=== PATIENT | female | born 1995 | race Caucasian/White ===

== ENCOUNTER 2017-01-24 11:31 | Inpatient (IN) | payer BC ==
--- NOTE | ~2017-01-24 | CO ---
Unit #: [id number] #: [id number] Patient: THERESE RAGSDALE [id number] [address] [place], [place] [address] [id number] I MR#: [id number] NAME: THERESE RAGSDALE ROOM: 47 Age: 21 Sex: F Admission Date: 01/24/2017 : 1995 Attending Physician: Crystal Hickman M.D. CONSULTATION REPORT REASON FOR CONSULTATION Abdominal pain, diarrhea. HISTORY OF PRESENTING ILLNESS The patient states she was in her usual state of health until evening, where she began to have severe abdominal pain with associated nonbloody diarrhea. She subsequently went to urgent care, where they diagnosed her with UTI, sent her home with antibiotics. The pain persisted and she ended up here at the ER on Wednesday, where CT of abdomen and pelvis was completed, showing inflammation of bowel loops. She has been started on antibiotics. Pain is being controlled with pain medications, and the patient has yet to have a bowel movement this morning. ALLERGIES To trazodone. HOME MEDICATIONS Pyridium, ibuprofen, and Bactrim DS. SOCIAL HISTORY The patient denies tobacco, alcohol, or illicit drugs. PAST MEDICAL HISTORY Previous foot surgery. Otherwise, nothing noted. REVIEW OF SYSTEMS A complete 10-point review of systems was completed and negative except as mentioned in the HPI. PHYSICAL EXAMINATION GENERAL: The patient is a very pleasant, 21-year-old female, currently in no acute distress. VITAL SIGNS: Temperature is 98, pulse is 88, respirations 18, blood pressure is 115/62. HEENT: PERRLA. NECK: Supple. CARDIAC: S1, S2. LUNGS: Clear to auscultation. ABDOMEN: Soft, rounded. Positive tenderness, right side greater than left. NEUROLOGIC: The patient is alert, awake, and oriented x3. DIAGNOSTIC STUDIES IMAGING STUDIES: Again, a CT of abdomen and pelvis was completed, which Unit #: [id number] #: [id number] Patient: THERESE RAGSDALE showed significant wall thickening of the bowel loops. LABORATORY RESULTS: Chemistry is negative. White count is 11.3, which is down from 16.6 yesterday; hemoglobin is 12.3; hematocrit is 38.5, and platelets are 280. ASSESSMENT AND PLAN 1. Abdominal pain with diarrhea and an abnormal CT. We will await stool studies due to short-term course of symptoms. We will continue supportive care for now. Continue antibiotics, IV fluids, pain management. We would consider colonoscopy and small bowel follow-through in the future if no improvement in the symptoms and pending stool studies. 2. Urinary tract infection. Per primary team. Thank you for this interesting consult. We will continue to follow along. Dictated by... Sd KerrPSulemaRSulemaN. for George Elaine/angela TD: 01/25/2017 22:04 JOB #: [id number] CONSULTATION REPORT Page 1 of 1 X X CONSULTATION REPORT
--- NOTE | ~2017-01-24 | DS ---
Unit #: [id number] #: [id number] Patient: THERESE RAGSDALE [id number] [address] [address] [id number] I MR#: [id number] NAME: THERESE RAGSDALE ROOM: 47 Age: 21 Sex: F Admission Date: 01/24/2017 : 1995 Discharge Date: Attending Physician: Crystal Hickman M.D. Primary Care Physician: No Primary Care Physician DISCHARGE SUMMARY DISCHARGE DIAGNOSES 1. Acute ileitis. 2. Campylobacter positive. 3. Urinary tract infection. 4. Mild hyponatremia. CONSULTATIONS 1. [facility]. 2. Dr. Fields. PROCEDURE None. DIAGNOSTIC STUDIES LABORATORY: Campylobacter antigen present. Clostridium difficile negative. Sodium 133, potassium 3.6, creatinine 0.7. WBC 9.5, hemoglobin 12.2, platelets 338,000. Urine cultures negative. Blood cultures negative. Lactic acid 0.7. IMAGING: CAT scan of the abdomen and pelvis shows short segment thickening mid ileum. Findings nonspecific suggestive of inflammatory bowel disease. ALLERGIES Trazodone. DISCHARGE MEDICATIONS 1. Lortab 5 mg q.4 p.r.n. pain. 2. Ciprofloxacin 500 p.o. b.i.d. for seven days. 3. Flagyl 500 p.o. three times daily for seven days. HOSPITALIZATION COURSE A 21 year old admitted because of diarrhea and abdominal pain. Acute ileitis: The patient was seen by surgeon and Dr. Fields. The patient was started on IV Zosyn and Flagyl. Currently, pain better. Patient afebrile. WBC normal. Surgeon recommended colonoscopy but patient wants it as an outpatient. Surgeon and Dr. Fields okay for the patient to be discharged and have a colonoscopy as an outpatient to rule out any Crohn disease. The patient will be discharged on ciprofloxacin and Flagyl for seven days. Urinary tract infection: Cultures negative. Unit #: [id number] #: [id number] Patient: THERESE RAGSDALE DISPOSITION Patient will be discharged home. FOLLOWUP 1. Follow with family physician in one week time. 2. Follow with Dr. Fields in one to two weeks' time. 3. Follow with [facility] in one week time for outpatient colonoscopy. Dictated by... CrystalGeorge Miner TD: 01/27/2017 16:12 JOB #: [id number] DISCHARGE SUMMARY Page 1 of 1 X Crystal Hickman MD X DISCHARGE SUMMARY
--- NOTE | ~2017-01-24 | CO ---
Unit #: [id number] #: [id number] Patient: THERESE RAGSDALE [id number] [address] [address] [id number] I MR#: [id number] NAME: THERESE RAGSDALE ROOM: 476 Age: 21 Sex: F Admission Date: 01/24/2017 : 1995 Attending Physician: Crystal Hickman M.D. Consultation Date: 01/25/2017 CONSULTATION REPORT REASON FOR CONSULTATION Abdominal pain. HISTORY OF PRESENT ILLNESS Thank you very much for asking us to see Ms. Ragsdale. She is a 21-year-old white female, who approximately 3 to 4 days ago developed abdominal pain. She has had nausea, vomiting as well as diarrhea. She denies any GI bleeding. She states she may have some blood in her urine. She has had some frequency and urgency. She has had no pulmonary symptoms. She was evaluated in the emergency room and on CT scan was found to have inflammatory changes. There were several loops of small bowel in the lower abdomen. Her appendix appeared normal. She had no free air. She has not been on any antibiotics recently. She has a negative family history of inflammatory bowel disease. She presents at this time for further evaluation and treatment. ALLERGIES Trazodone. MEDICATIONS Please see home med rec sheet. PAST SURGICAL HISTORY No abdominal surgery. She had some foot surgery in the past. PAST MEDICAL HISTORY Unremarkable. SOCIAL HISTORY No tobacco or alcohol use. REVIEW OF SYSTEMS Negative except for above. IMMUNIZATION STATUS Unknown. FAMILY HISTORY Noncontributory. PHYSICAL EXAMINATION GENERAL: Well-developed, well-nourished white female, in no apparent distress. Unit #: [id number] #: [id number] Patient: THERESE RAGSDALE VITAL SIGNS: Afebrile with temperature 98, pulse 88, respirations 18, blood pressure 115/62. HEENT: Sclerae not icteric. Extraocular movements appear intact. NECK: Supple. No thyromegaly or adenopathy. BACK: No CVA or spinous tenderness. ABDOMEN: Soft, nondistended. She has mild diffuse tenderness mostly in the lower abdomen. No rebound or peritoneal signs, but there was some [id number] guarding. EXTREMITIES: No calf tenderness. DIAGNOSTIC STUDIES LABORATORY RESULTS: Reveal the patient to have a normal CMP, amylase, and lipase. Her white count was 16.6 on admission and is now 11.3. Her urinalysis was 2+ leukocyte esterase, positive nitrites with 10 to 25 white cells per high-powered field. The culture result is pending. IMPRESSION A 21-year-old white female with dysuria, possible hematuria and positive urinalysis for urinary tract infection. We have recommended IV fluids and IV antibiotics. We will have Dr. Fields see the patient for possible inflammatory bowel disease. We will follow the patient with you. Thank you so much for this consultation. We appreciate it. Dictated by... George Cabrera/angela TD: 01/25/2017 23:41 JOB #: [id number] CC: [facility] CONSULTATION REPORT Page 1 of 1 X Dash Huynh MD X CONSULTATION REPORT
--- NOTE | ~2017-01-24 | HP ---
Unit #: [id number] #: [id number] Patient: THERESE RAGSDALE [id number] [address] [address] [id number] I MR#: [id number] NAME: THERESE RAGSDALE ROOM: 476 Age: 21 Sex: F Admission Date: 01/24/2017 : 1995 Attending Physician: Crystal Hickman M.D. Primary Care Physician: No Primary Care Physician HISTORY AND PHYSICAL REASON FOR ADMISSION Right lower quadrant pain/ileitis. HISTORY OF PRESENT ILLNESS The patient is a very pleasant 22-year-old female, relatively unremarkable past medical history, who presents with right lower quadrant pain. Initial concern was secondary to acute appendicitis. She was accompanied by her parents. Through the emergency room course the patient underwent routine laboratory studies along with CT of the abdomen and pelvis. On her CT of the abdomen and pelvis findings were more consistent with ileitis. White count was also elevated to 16.6, sodium 133 and initial urinalysis was positive. She is being admitted for the same. PAST MEDICAL HISTORY None. PAST SURGICAL HISTORY Foot surgery, remote. SOCIAL HISTORY Negative alcohol. Negative tobacco. Negative illicit drug use. FAMILY HISTORY Reviewed, noncontributory and not pertinent. ALLERGIES Trazodone. HOME MEDICATIONS Recent diagnosis of urinary tract infection at Urgent Care facility. 1. Bactrim. 2. Peridium. 3. Ibuprofen. REVIEW OF SYSTEMS Please see history of present illness. Twelve points otherwise negative except for those positives noted in history of present illness. PHYSICAL EXAMINATION GENERAL: The patient is a 22-year-old female lying comfortably, in no acute distress. Unit #: [id number] #: [id number] Patient: THERESE RAGSDALE VITALS: Temperature 99.4, pulse 124, respiratory rate 15, blood pressure 123/79. HEENT: Head atraumatic, normocephalic. Mucous membranes do not reveal any erythema or injection. NECK: Supple. LUNGS: Clear. HEART: S1 and S2, without murmur. ABDOMEN: Distension noted, right lower quadrant tenderness noted. No rebound. No guarding noted. EXTREMITIES: No evidence of lower extremity edema. No calf tenderness. NEUROLOGIC: The patient is alert and oriented times three. No evidence of any focal nerve deficits. EMERGENCY ROOM COURSE The patient received normal saline bolus, Dilaudid, Zofran, Zosyn and is currently receiving IV fluids. INITIAL ADMISSION ASSESSMENT 1. Ileitis. 2. Abdominal pain, right lower quadrant. 3. Urinary tract infection. PLAN Admission medical/surgical floor. Consultation will be placed to [facility]. Will initiate Zosyn and Flagyl until evaluated by surgery. Await final urine culture. Symptoms management and pain control. Plans have been reviewed with the patient as well as her parents, who are present at bedside. Further hospital course to follow pending above. Dictated by George Robb/mushtaq TD: 01/25/2017 12:03 JOB #: [id number] HISTORY AND PHYSICAL Page 1 of 1 X Tasia Hernandez MD HISTORY AND PHYSICAL
--- NOTE | ~2017-01-24 | CT4 ---
[facility] A Service of [facility] & [facility] / [facility] RADIOLOGY TEXT RESULTS PATIENT: THERESE RAGSDALE LOCATION: [facility] 476-01 : [birth year] UNIT #: [id number] AGE: [address]: Crytsal Hickamn MD SEX: F ORDER DR: [id number] [facility] [address] [place], [place] [address] [id number] I MR#: [id number] Acc #: [id number] NAME: THERESE RAGSDALE : 1995 SEX: F STUDY DATE/TIME: 01/26/2017 15:37 UNIT: [facility] ROOM: [facility] STUDY DESCRIPTION: CT Abd and Pelv Wo Cont Attending Physician: Crystal Hickman M.D. Ordering Physician: Efren Toscano M.D. MEDICAL IMAGING REPORT This report is preliminary unless electronic signature is present EXAM CT abdomen and pelvis with IV contrast COMPARISON STUDIES January 24, 2017. INDICATIONS 21-year-old female with bilateral abdominal pain, right greater than left, for 5 days. Nausea and emesis for [address] imaging of the pelvis was performed after IV administration of 100 mL Isovue 70. Coronal and sagittal reformats constructed. This CT exam was performed with one or more of the following radiation dose reduction techniques: automatic exposure control, adjustment of mA and/or kV according to patient size, and iterative reconstruction. FINDINGS No acute fractures or suspicious osseous lesions. No acute findings in the lower chest. Liver, gallbladder, pancreas, adrenal glands unremarkable. Spleen is within normal limits. Kidneys are within normal limits. There is no hydronephrosis or hydroureter. Urinary bladder and uterus are unremarkable. There is a large fluid-containing structure in the right ovary with rim enhancement measuring 2.6 cm, most consistent with a corpus luteum cyst. Left ovary is unremarkable. Right ovarian lesion could also represent a simple follicular cyst of the right ovary. There is normal bowel caliber. The colon and appendix are normal. There is focal short segment thickening of the proximal to mid ileum in the right pelvis. There is no evidence of extravasation of contrast within the small bowel. No evidence of associated abscess. No pneumoperitoneum. Abdominal aorta is normal caliber with patency in its main branches. No evidence of venous thrombosis. There are scattered mesenteric lymph nodes [facility] A Service of [facility] RADIOLOGY TEXT RESULTS PATIENT: THERESE RAGSDALE LOCATION: [facility] 476-01 : [birth year] UNIT #: [id number] AGE: [address]: Crystal Hickman MD SEX: F ORDER DR: which are numerous. None of these are pathologically enlarged by CT size criteria and are likely reactive. No free fluid or pneumoperitoneum. IMPRESSION 1. Short-segment thickening of a loop of proximal to mid-ileum in the right pelvis. These findings are nonspecific but would suggest inflammatory bowel disease. Also, consider infectious etiology. 2. No evidence of bowel obstruction or perforation. No abscess or free fluid. 3. Benign simple cyst versus corpus luteum cyst in the right ovary. 4. Multiple mesenteric lymph nodes without pathologic enlargement by CT size criteria and likely reactive. Consider imaging followup to ensure stability or resolution of findings in the ileum. Dictated by... Tomasz Noriega M.D. THIS IS AN ELECTRONICALLY VERIFIED REPORT Tomasz Noriega M.D. at 01/31/2017 7:29 PM CLARITZA/wilver TD: 01/26/2017 19:17 JOB #: [id number] MEDICAL IMAGING REPORT Page 1 of 1 COPY
[2017-01-24 11:52] LABS: URINE SOURCE CLEAN CATCH
[2017-01-24 11:59] LABS: URINE APPEARANCE CLOUDY; URINE BLOOD NEG (NEG); URINE COLOR DK YELLOW; URINE GLUCOSE NEG (NEG); URINE KETONE 3+ (NEG); URINE LEUKOCYTE ESTERASE 2+ (NEG); URINE NITRATE POS (NEG); URINE PROTEIN TRACE (NEG); URINE SPECIFIC GRAVITY 1.029 (1.003-1.035)
[2017-01-24 12:08] LABS: CULTURE INDICATED? YES; URINE BACTERIA AUWI 2+ (NEGATIVE); URINE SQUAMOUS EPITHELIAL CELL MOD /[HPF]
[2017-01-24 12:08] LABS: BASOPHIL% 0.3 % (0-2.5); EOSINOPHIL# 0.1 X10e3 (0-0.7); EOSINOPHIL% 0.4 % (0.0-7.0); HEMATOCRIT 40.4 % (35.0-45.0); HEMOGLOBIN 13.1 gm/dL (12.0-16.0); LYMPHOCYTE# 1.8 X10e3 (1.0-3.5); MEAN CORPUSCULAR HGB CONC 32.5 g/dL (30-36); MEAN PLATELET VOLUME 9.3 FL (6.5-11.5); MONOCYTE# 1.3 X10e3 (0-1.0); MONOCYTE% 7.7 % (3.0-12.0); NEUTROPHIL# 13.4 X10e3 (1.5-7.1); NEUTROPHIL% 80.6 % (40-75); PLATELET COUNT 299 X10e3 (140-420); RED BLOOD COUNT 4.87 X10e (3.90-5.30); RED CELL DISTRIBUTION WIDTH 13.4 % (11.0-15.5); WHITE BLOOD COUNT 16.6 X10e3 (4.0-10.5)
[2017-01-24 12:09] LABS: DIFF IND YES
[2017-01-24 12:21] LABS: U HYALINE CASTS AUWI 0-2 /[LPF]
[2017-01-24 12:22] LABS: URINE BILIRUBIN NEG (NEG)
[2017-01-24 12:27] LABS: PLATELET ESTIMATE NORMAL (NORMAL)
[2017-01-24 12:37] LABS: ALBUMIN SERUM 3.9 g/dL (3.5-5.0); ALKALINE PHOSPHATASE 63 U/L (32-92); ALT (SGPT) 13 U/L (10-40); AMYLASE 10 U/L (0-46); AST (SGOT) 11 U/L (10-42); BILIRUBIN, DIRECT 0.2 mg/dL (0.0-0.2); BILIRUBIN,INDIRECT 0.7 mg/dL (0.0-0.9); BILIRUBIN,TOTAL 0.9 mg/dL (0.2-2.0); BLOOD UREA NITROGEN 7 mg/dL (9-23); CARBON DIOXIDE 20 mmol/L (22-31); CHLORIDE 104 mmol/L (100-111); CREATININE SERUM 0.7 mg/dL (0.6-1.4); GLOM FILT RATE Estimated 124.7 mL/min (>60); GLUCOSE FASTING 94 mg/dL (70-110); LIPASE <10 U/L (22-51); POTASSIUM 3.9 mmol/L (3.5-5.1); PROTEIN TOTAL SERUM 7.5 g/dL (6.0-8.3); SODIUM 133 mmol/L (135-145)
[2017-01-24] MEDS ORDERED: PYRIDIUM100 MG PO (14:33)
[2017-01-24] MEDS ORDERED: IBUPROFEN800 MG PO (14:34)
[2017-01-24] MEDS ORDERED: BACTRIM DS TAB1 EACH PO (14:35)
[2017-01-25 02:05] LABS: BASOPHIL# 0.1 X10e3 (0-0.3); BASOPHIL% 0.5 % (0-2.5); DIFF IND NO; EOSINOPHIL# 0.1 X10e3 (0-0.7); EOSINOPHIL% 1.3 % (0.0-7.0); HEMATOCRIT 38.5 % (35.0-45.0); HEMOGLOBIN 12.3 gm/dL (12.0-16.0); LYMPHOCYTE# 2.3 X10e3 (1.0-3.5); LYMPHOCYTE% 20.3 % (17.0-45.0); MEAN CELL VOLUME 83.4 FL (83-96); MEAN CORPUSCULAR HEMOGLOBIN 26.7 PG (28-34); MONOCYTE# 0.9 X10e3 (0-1.0); MONOCYTE% 8.4 % (3.0-12.0); NEUTROPHIL# 7.8 X10e3 (1.5-7.1); NEUTROPHIL% 69.5 % (40-75); PLATELET COUNT 280 X10e3 (140-420); RED BLOOD COUNT 4.61 X10e (3.90-5.30); RED CELL DISTRIBUTION WIDTH 13.2 % (11.0-15.5); WHITE BLOOD COUNT 11.3 X10e3 (4.0-10.5)
[2017-01-25 02:33] LABS: BUN/CREATININE RATIO 7.14; CALCIUM SERUM 8.4 mg/dL (8.4-10.2); CREATININE SERUM 0.7 mg/dL (0.6-1.4); GLOM FILT RATE Estimated 124.7 mL/min (>60)
[2017-01-26 02:57] LABS: HEMOGLOBIN 11.9 gm/dL (12.0-16.0); MEAN CELL VOLUME 82.4 FL (83-96); MEAN CORPUSCULAR HEMOGLOBIN 26.4 PG (28-34); MEAN PLATELET VOLUME 8.9 FL (6.5-11.5); RED BLOOD COUNT 4.49 X10e (3.90-5.30); RED CELL DISTRIBUTION WIDTH 13.2 % (11.0-15.5); WHITE BLOOD COUNT 8.2 X10e3 (4.0-10.5)
[2017-01-26 03:18] LABS: ALBUMIN SERUM 3.4 g/dL (3.5-5.0); ALKALINE PHOSPHATASE 63 U/L (32-92); ALT (SGPT) 10 U/L (10-40); AST (SGOT) 9 U/L (10-42); BILIRUBIN,TOTAL 0.6 mg/dL (0.2-2.0); BLOOD UREA NITROGEN <5 mg/dL (9-23); BUN/CREATININE RATIO 8.33; CALCIUM SERUM 8.4 mg/dL (8.4-10.2); CARBON DIOXIDE 24 mmol/L (22-31); CHLORIDE 103 mmol/L (100-111); CREATININE SERUM 0.6 mg/dL (0.6-1.4); GLOM FILT RATE Estimated 131.2 mL/min (>60); GLUCOSE FASTING 90 mg/dL (70-110); POTASSIUM 3.7 mmol/L (3.5-5.1); PROTEIN TOTAL SERUM 6.9 g/dL (6.0-8.3); SODIUM 135 mmol/L (135-145)
[2017-01-27 03:49] LABS: HEMATOCRIT 37.3 % (35.0-45.0); HEMOGLOBIN 12.2 gm/dL (12.0-16.0); MEAN CELL VOLUME 81.7 FL (83-96); MEAN CORPUSCULAR HEMOGLOBIN 26.7 PG (28-34); MEAN CORPUSCULAR HGB CONC 32.7 g/dL (30-36); MEAN PLATELET VOLUME 8.5 FL (6.5-11.5); RED BLOOD COUNT 4.56 X10e (3.90-5.30); WHITE BLOOD COUNT 9.5 X10e3 (4.0-10.5)
[2017-01-27 04:15] LABS: BUN/CREATININE RATIO 7.14; CALCIUM SERUM 8.6 mg/dL (8.4-10.2); CREATININE SERUM 0.7 mg/dL (0.6-1.4); GLOM FILT RATE Estimated 124.7 mL/min (>60); POTASSIUM 3.6 mmol/L (3.5-5.1)
[2017-01-27] MEDS ORDERED: CIPRO PO (16:53)
[2017-01-27] MEDS ORDERED: FLAGYL PO (16:53)
[2017-01-27] MEDS ORDERED: LORTAB 5-325 M1 EACH PO (16:54)
[2017-02-24] MEDS ORDERED: ZOFRAN ODT4 M1 PO (16:08)
[2017-02-24] MEDS ORDERED: PHENERGAN25 MG PO (16:09)
== END 2017-01-27 17:50 | disposition home or self-care (01) | DRG 372 ==
LOC: CED 11:31 → CEDOF 15:00 → C4C 17:40
PROVIDERS: Emergency Medicine; Family Medicine; Internal Medicine; Surgery
DX: A04.5 Campylobacter enteritis (principal); N39.0 Urinary tract infection, site not specified; E87.1 Hypo-osmolality and hyponatremia; B96.89 Other specified bacterial agents as the cause of diseases classified elsewhere; Z88.8 Allergy status to other drugs, medicaments and biological substances; R31.9 Hematuria, unspecified
CPT/HCPCS: 74176; 74177; 80048; 80053; 80076; 81003; 82150; 83605; 83690; 84703; 85025; 85027; 86140; 87040; 87045; 87086; 87177; 87209; 87427; 87493; 87899; 94760; 96361; 96365; 96375; 99291; C9113; J1170; J2270; J2405; J2543; Q9967

== ENCOUNTER 2017-02-15 09:21 | Emergency (ER) | payer BC ==
[~2017-02-15 09:21] MED LIST: BACTRIM DS TAB1 EACH PO; CIPRO PO; FLAGYL PO; IBUPROFEN800 MG PO; LORTAB 5-325 M1 EACH PO; PYRIDIUM100 MG PO
[2017-02-15 10:09] LABS: BASOPHIL# 0.1 X10e3 (0-0.3); BASOPHIL% 0.8 % (0-2.5); EOSINOPHIL# 0.2 X10e3 (0-0.7); EOSINOPHIL% 2.2 % (0.0-7.0); HEMATOCRIT 42.6 % (35.0-45.0); LYMPHOCYTE# 2.4 X10e3 (1.0-3.5); MEAN CELL VOLUME 81.4 FL (83-96); MEAN CORPUSCULAR HEMOGLOBIN 26.8 PG (28-34); MEAN CORPUSCULAR HGB CONC 32.9 g/dL (30-36); MEAN PLATELET VOLUME 8.5 FL (6.5-11.5); MONOCYTE# 0.5 X10e3 (0-1.0); MONOCYTE% 6.2 % (3.0-12.0); NEUTROPHIL# 5.2 X10e3 (1.5-7.1); NEUTROPHIL% 61.8 % (40-75); PLATELET COUNT 371 X10e3 (140-420); RED BLOOD COUNT 5.23 X10e (3.90-5.30); RED CELL DISTRIBUTION WIDTH 13.7 % (11.0-15.5); WHITE BLOOD COUNT 8.4 X10e3 (4.0-10.5)
[2017-02-15 10:10] LABS: DIFF IND NO
[2017-02-15 10:31] LABS: URINE SOURCE CLEAN CATCH
[2017-02-15] MEDS ORDERED: DICYCLOMINE HCL20 MG PO (10:32)
[2017-02-15 10:38] LABS: URINE APPEARANCE CLEAR; URINE BILIRUBIN NEG (NEG); URINE BLOOD NEG (NEG); URINE COLOR YELLOW; URINE GLUCOSE NEG (NEG); URINE KETONE NEG (NEG); URINE LEUKOCYTE ESTERASE 1+ (NEG); URINE NITRATE NEG (NEG); URINE PH 6.5 (5-8); URINE PROTEIN NEG (NEG); URINE SPECIFIC GRAVITY 1.016 (1.003-1.035); URINE UROBILINOGEN 0.2 MG/DL (NEG)
[2017-02-15 10:40] LABS: CULTURE INDICATED? YES; U HYALINE CASTS AUWI 0-2 /[LPF]; URBCS1 AUWI 0-2 /[HPF] (0-2); URINE BACTERIA AUWI 3+ (NEGATIVE); URINE SQUAMOUS EPITHELIAL CELL MOD /[HPF]
[2017-02-15 10:41] LABS: ALBUMIN SERUM 4.2 g/dL (3.5-5.0); ALKALINE PHOSPHATASE 67 U/L (32-92); ALT (SGPT) 11 U/L (10-40); AMYLASE 17 U/L (0-46); AST (SGOT) 13 U/L (10-42); BILIRUBIN,TOTAL 0.4 mg/dL (0.2-2.0); BLOOD UREA NITROGEN 14 mg/dL (9-23); CALCIUM SERUM 9.5 mg/dL (8.4-10.2); CARBON DIOXIDE 25 mmol/L (22-31); CHLORIDE 104 mmol/L (100-111); CREATININE SERUM 0.7 mg/dL (0.6-1.4); GLOM FILT RATE Estimated 124.7 mL/min (>60); GLUCOSE FASTING 96 mg/dL (70-110); LIPASE 30 U/L (22-51); POTASSIUM 4.1 mmol/L (3.5-5.1); PROTEIN TOTAL SERUM 7.9 g/dL (6.0-8.3); SODIUM 135 mmol/L (135-145)
[2017-02-15 10:47] LABS: BILIRUBIN, DIRECT <0.1 mg/dL (0.0-0.2); BILIRUBIN,INDIRECT 0.3 mg/dL (0.0-0.9)
[2017-02-24] MEDS ORDERED: ZOFRAN ODT4 M1 PO (16:08)
[2017-02-24] MEDS ORDERED: PHENERGAN25 MG PO (16:09)
== END 2017-02-15 12:03 | disposition home or self-care (01) ==
LOC: CED 09:21
PROVIDERS: Physician Assistant Medical
DX: R11.2 Nausea with vomiting, unspecified (principal); R10.9 Unspecified abdominal pain; Z88.8 Allergy status to other drugs, medicaments and biological substances; Z79.899 Other long term (current) drug therapy
CPT/HCPCS: 36415; 80048; 80076; 81003; 82150; 83690; 84703; 85025; 87086; 96361; 96374; 99284; J2405

== ENCOUNTER → 2017-02-19 | Outpatient (CLI) | payer BC ==
[~2017-02-19] MED LIST changes: +DICYCLOMINE HCL20 MG PO; +PHENERGAN25 MG PO; +ZOFRAN ODT4 M1 PO
--- NOTE | ~2017-02-19 | CR236 ---
[facility] A Service of [facility] & [facility] RADIOLOGY TEXT RESULTS PATIENT: THERESE RAGSDALE LOCATION: [facility] : [birth year] UNIT #: [id number] AGE: [address]: SHALINI LACY APRN SEX: F ORDER DR: [id number] [facility] [address] [place], [place] [address] [id number] O MR#: [id number] Acc #: [id number] NAME: THERESE RAGSDALE : 1995 SEX: F STUDY DATE/TIME: 02/19/2017 11:58 UNIT: [facility] ROOM: STUDY DESCRIPTION: CR Small Bowel Sbft W Films Ordering Physician: Shalini Lacy A.P.R.N. MEDICAL IMAGING REPORT This report is preliminary unless electronic signature is present EXAM Small bowel follow-through INDICATIONS 21-year-old female with history of abdominal pain, possible Crohn disease. Symptoms for 1 month. TECHNIQUE Fluoroscopy time was 1.2 minutes. 3 spot fluoroscopic images were taken. FINDINGS The small bowel transit time is normal. There is no evidence for fold thickening. No dilated loops of small bowel. The terminal ileum appears to be within normal limits. IMPRESSION Normal small bowel follow-through. Dictated by... Joshua Rice M.D. THIS IS AN ELECTRONICALLY VERIFIED REPORT Joshua Rice M.D. at 02/20/2017 9:47 AM TOMMIE/wilver TD: 02/19/2017 20:18 JOB #: [id number] MEDICAL IMAGING REPORT Page 1 of 1 COPY
[2017-02-19 10:32] LABS: HEMATOCRIT 42.6 % (35.0-45.0); HEMOGLOBIN 13.6 gm/dL (12.0-16.0); MEAN CELL VOLUME 82.4 FL (83-96); MEAN CORPUSCULAR HEMOGLOBIN 26.3 PG (28-34); MEAN CORPUSCULAR HGB CONC 31.9 g/dL (30-36); MEAN PLATELET VOLUME 8.2 FL (6.5-11.5); RED BLOOD COUNT 5.16 X10e (3.90-5.30); RED CELL DISTRIBUTION WIDTH 13.5 % (11.0-15.5)
[2017-02-19 10:53] LABS: ALBUMIN SERUM 4.3 g/dL (3.5-5.0); BILIRUBIN,TOTAL 0.5 mg/dL (0.2-2.0); BUN/CREATININE RATIO 12.5; CREATININE SERUM 0.8 mg/dL (0.6-1.4); GLOM FILT RATE Estimated 106.2 mL/min (>60); POTASSIUM 4.2 mmol/L (3.5-5.1); PROTEIN TOTAL SERUM 7.7 g/dL (6.0-8.3)
== END | disposition home or self-care (01) ==
LOC: CRAD 09:44 → CLAB 09:44 → CRAD 11:00
PROVIDERS: Nurse Practitioner Family
DX: R10.9 Unspecified abdominal pain (principal)
CPT/HCPCS: 36415; 74250; 80053; 85027